=== PATIENT | male | born 1980 | race Caucasian/White ===

== ENCOUNTER 2017-07-22 20:22 | Emergency (ER) | payer OTHER ==
[2017-07-22 20:27] VITALS: TEMP 98.5
[2017-07-22] MEDS ORDERED: hydrALAZINE HCL 20 MG/ML 1 ML VIAL IVP STA (21:02)
[2017-07-22] MEDS ORDERED: ONDANSETRON 4 MG/2 ML VIAL IVP STA (21:07)
[2017-07-22] MEDS ORDERED: SODIUM CHLORIDE 0.9% 1,000 ML IV STA (21:07)
[2017-07-22] MEDS ORDERED: MORPHINE SULFATE 5 MG/ML SYRINGE IV STA (21:07)
[2017-07-22] MEDS: NITROGLYCERIN SL TABS 0.4 MG TAB SUBLINGUAL STA ×2 (21:17→21:25)
[2017-07-22] MEDS: HYDROmorphone 1 MG/ML 1 ML SYRINGE IVP STA ×2 (21:19→22:28)
[2017-07-22 21:23] LABS: Basophils % (A) 0 %; Eosinophils # (A) 0.1 k/uL (0-0.7); Eosinophils % (A) 1 %; HCT 41.5 % (39.0-53.0); HGB 14.2 gm/dL (13.0-17.5); Lymphocytes # (A) 1.1 k/uL (1.0-4.8); Lymphocytes % (A) 9 %; MCH 30.1 pg (25.0-35.0); MCHC 34.1 g/dL (31.0-37.0); MCV 88.1 fL (80.0-100.0); Mean Platelet Volume 8.3; Monocytes # (A) 0.8 k/uL (0-1.0); Monocytes % (A) 6 %; Neutrophils % (A) 83 %; Platelet Count 170 k/uL (150-450); RBC 4.71 m/uL (4.30-5.90); RDW 13.9 % (11.5-15.5); WBC 12.1 k/uL (3.8-10.6)
[2017-07-22 21:32] LABS: ALT 44 U/L (21-72); AST 22 U/L (17-59); Albumin 3.8 g/dL (3.5-5.0); Alkaline Phosphatase 67 U/L (38-126); Amylase <30 U/L (30-110); Anion Gap 9 mmol/L; Blood Urea Nitrogen 22 mg/dL (9-20); Calcium 9.2 mg/dL (8.4-10.2); Carbon Dioxide 26 mmol/L (22-30); Chloride 103 mmol/L (98-107); Glucose 134 mg/dL (74-99); Lipase 17 U/L (23-300); Magnesium 1.8 mg/dL (1.6-2.3); Sodium 138 mmol/L (137-145); Total Bilirubin 0.7 mg/dL (0.2-1.3); Total Protein 6.9 g/dL (6.3-8.2)
[2017-07-22] MEDS ORDERED: RX INFO: IV CONTRAST WAS GIVEN 1 EACH MISC MISCELLANE PRN (21:33)
--- NOTE | 2017-07-22 21:33 | ED ---
General Adult HPI - General Chief complaint: Chest Pain Stated complaint: chest pain Time Seen by Provider: 07/22/17 20:40 Source: patient, family, RN notes reviewed Mode of arrival: wheelchair Limitations: no limitations - History of Present Illness Initial comments: Chief complaint history of present illness a 36-year-old male here with his . The patient reports that approximately 1 PM yesterday he started having a burning chest pain. He gets worse when he sits up. Patient denies nausea vomiting or shortness of breath. Denies any change in color stool. Reports he felt chilled does not report having had a fever. Reports he had some muscle aches and pains - Related Data Home Medications Medication Instructions Recorded Confirmed No Known Home Medications [No 07/22/17 07/22/17 Known Home Medications] Allergies Allergy/AdvReac Type Severity Reaction Status Date / Time No Known Allergies Allergy Verified 07/22/17 20:26 Review of Systems ROS Statement: Those systems with pertinent positive or pertinent negative responses have been documented in the HPI. Review of systems. The patient denies any headache , his skin is flushed. Blood pressure significantly elevated at 200/140. Patient reports he thinks he may been told he had blood pressure past has never been treated for it. Patient reports that he was having a burning sensation whenever he would sit up to his retrosternal area. Patient denies pain radiating to the neck arm or back. Certain twists increases discomfort. No pain to deep palpation over his anterior chest wall. The patient denies any physical activity that may have injured his chest wall. Patient denies any neuro deficits. No nausea no vomiting. Has not been taking any antacids lately. All systems reviewed. Denies any chronic medical problems. Denies having had a history of hypertension. Surgeries ankle surgery and he was younger. Family history no cancers. Patient denies ALLERGIES. He does smoke strongly encouraged stop drinks alcohol socially. ROS Other: All systems not noted in ROS Statement are negative. Past Medical History Past Medical History: Hypertension History of Any Multi-Drug Resistant Organisms: None Reported Past Surgical History: Orthopedic Surgery Past Psychological History: No Psychological Hx Reported Smoking Status: Current every day smoker Past Alcohol Use History: None Reported Past Drug Use History: None Reported General Exam - General Exam Comments Initial Comments: General: The patient is awake and alert, complains of pain in the retrosternal area. Denies any nausea or vomiting. He states the pain worsens when he sits up immediately. Less so when he lays down. Eye: Pupils are equal, round and reactive to light, extra-ocular movements are intact ; there is normal conjunctiva bilaterally. No signs of icterus. Ears, nose, mouth and throat: There are moist mucous membranes and no oral lesions. Neck: The neck is supple, there is no tenderness, no carotid bruit. Cardiovascular: There is a regular rate and rhythm. No murmur, rub or gallop is appreciated. Respiratory: Lungs are clear to auscultation, respirations are non-labored, breath sounds are equal. No wheezes, stridor, rales, or rhonchi. Gastrointestinal: Soft, non-distended, non-tender abdomen without masses or organomegaly noted. There is no rebound or guarding present. No CVA tenderness. Bowel sounds are unremarkable. Back: There is no tenderness to palpation in the midline. There is no obvious deformity. No rashes noted. Musculoskeletal: Normal ROM, no tenderness, There is no pedal edema. There is no calf tenderness or swelling. Sensation intact. Pulses equal bilaterally 2+. Neurological: CN II-XII intact, There are no obvious motor or sensory deficits. Coordination appears grossly intact. Speech is normal. Skin: Skin is warm and dry and no rashes or lesions are noted. Psychiatric: Cooperative, appropriate mood & affect, normal judgment. Limitations: no limitations Course Vital Signs 07/22/17 07/22/17 07/22/17 20:24 21:20 21:24 Temperature 98.5 F Pulse Rate 108 H 100 105 H Respiratory 20 20 20 Rate Blood Pressure 231/122 190/126 186/89 O2 Sat by Pulse 98 96 98 Oximetry 07/22/17 07/22/17 07/22/17 21:29 21:56 22:06 Temperature Pulse Rate 108 H 96 95 Respiratory 20 16 20 Rate Blood Pressure 180/87 188/92 175/88 O2 Sat by Pulse 97 96 97 Oximetry 07/22/17 22:11 Temperature Pulse Rate 100 Respiratory 20 Rate Blood Pressure 177/90 O2 Sat by Pulse 97 Oximetry Medical Decision Making - Medical Decision Making Stat CT of the chest was done and reviewed with the radiologist in the department. His diagnosis is type A type S any aortic dissection down to both iliac vessels, non-flow limiting. Patient will be transferred to [facility]. Via the fastest transport available at this time either helicopter or ambulance. Spoke with at [facility], cardiothoracic surgeon on-call. He accepts the patient for transfer. The patient will be transferred via helicopter as that is the fastest modality at this time. The patient will be on as needed a labetalol drip. - Lab Data Result diagrams: 07/22/17 20:52 07/22/17 20:52 Lab Results 07/22/17 07/22/17 07/22/17 Range/Units 20:52 20:52 20:52 WBC 12.1 H (3.8-10.6) k/uL RBC 4.71 (4.30-5.90) m/uL Hgb 14.2 (13.0-17.5) gm/dL Hct 41.5 (39.0-53.0) % MCV 88.1 (80.0-100.0) fL MCH 30.1 (25.0-35.0) pg MCHC 34.1 (31.0-37.0) g/dL RDW 13.9 (11.5-15.5) % Plt Count 170 (150-450) k/uL Neutrophils % 83 % Lymphocytes % 9 % Monocytes % 6 % Eosinophils % 1 % Basophils % 0 % Neutrophils # 10.0 H (1.3-7.7) k/uL Lymphocytes # 1.1 (1.0-4.8) k/uL Monocytes # 0.8 (0-1.0) k/uL Eosinophils # 0.1 (0-0.7) k/uL Basophils # 0.0 (0-0.2) k/uL PT (9.0-12.0) sec INR (<1.2) APTT (22.0-30.0) sec D-Dimer (<0.60) mg/L FEU Sodium 138 (137-145) mmol/L Potassium 3.9 (3.5-5.1) mmol/L Chloride 103 (98-107) mmol/L Carbon Dioxide 26 (22-30) mmol/L Anion Gap 9 mmol/L BUN 22 H (9-20) mg/dL Creatinine 1.20 (0.66-1.25) mg/dL Est GFR (MDRD) Af Amer >60 (>60 ml/min/1.73 sqM) Est GFR (MDRD) Non-Af >60 (>60 ml/min/1.73 sqM) Glucose 134 H (74-99) mg/dL Calcium 9.2 (8.4-10.2) mg/dL Magnesium 1.8 (1.6-2.3) mg/dL Total Bilirubin 0.7 (0.2-1.3) mg/dL AST 22 (17-59) U/L ALT 44 (21-72) U/L Alkaline Phosphatase 67 (38-126) U/L Total Creatine Kinase 52 L (55-170) U/L CK-MB (CK-2) 0.7 (0.0-2.4) ng/mL CK-MB (CK-2) Rel Index 1.3 Troponin I <0.012 (0.000-0.034) ng/mL Total Protein 6.9 (6.3-8.2) g/dL Albumin 3.8 (3.5-5.0) g/dL Amylase <30 L (30-110) U/L Lipase 17 L (23-300) U/L Influenza Type A RNA (Not Detectd) Influenza Type B (PCR) (Not Detectd) 07/22/17 07/22/17 Range/Units 20:52 21:18 WBC (3.8-10.6) k/uL RBC (4.30-5.90) m/uL Hgb (13.0-17.5) gm/dL Hct (39.0-53.0) % MCV (80.0-100.0) fL MCH (25.0-35.0) pg MCHC (31.0-37.0) g/dL RDW (11.5-15.5) % Plt Count (150-450) k/uL Neutrophils % % Lymphocytes % % Monocytes % % Eosinophils % % Basophils % % Neutrophils # (1.3-7.7) k/uL Lymphocytes # (1.0-4.8) k/uL Monocytes # (0-1.0) k/uL Eosinophils # (0-0.7) k/uL Basophils # (0-0.2) k/uL PT 9.8 (9.0-12.0) sec INR 1.0 (<1.2) APTT 24.3 (22.0-30.0) sec D-Dimer 1.87 H (<0.60) mg/L FEU Sodium (137-145) mmol/L Potassium (3.5-5.1) mmol/L Chloride (98-107) mmol/L Carbon Dioxide (22-30) mmol/L Anion Gap mmol/L BUN (9-20) mg/dL Creatinine (0.66-1.25) mg/dL Est GFR (MDRD) Af Amer (>60 ml/min/1.73 sqM) Est GFR (MDRD) Non-Af (>60 ml/min/1.73 sqM) Glucose (74-99) mg/dL Calcium (8.4-10.2) mg/dL Magnesium (1.6-2.3) mg/dL Total Bilirubin (0.2-1.3) mg/dL AST (17-59) U/L ALT (21-72) U/L Alkaline Phosphatase (38-126) U/L Total Creatine Kinase (55-170) U/L CK-MB (CK-2) (0.0-2.4) ng/mL CK-MB (CK-2) Rel Index Troponin I (0.000-0.034) ng/mL Total Protein (6.3-8.2) g/dL Albumin (3.5-5.0) g/dL Amylase (30-110) U/L Lipase (23-300) U/L Influenza Type A RNA Not Detected (Not Detectd) Influenza Type B (PCR) Not Detected (Not Detectd) Disposition Clinical Impression: Acute thoracic aortic dissection Disposition: OTHER INSTITUTION NOT DEFINED Condition: Serious Referrals: None,Stated [Primary Care Provider] - 1-2 days - Out of Hospital Transfer - Req. Specs Out of Hospital Transfer - Requested Specifics: Other Emergency Center ( [facility], )
[2017-07-22 21:34] LABS: D-Dimer 1.87 mg/L FEU (<0.60); Partial Thromboplastin Time 24.3 sec (22.0-30.0); Prothrombin Time 9.8 sec (9.0-12.0)
[2017-07-22 21:43] LABS: Creatine Kinase 52 U/L (55-170)
[2017-07-22 21:46] LABS: Potassium 3.9 mmol/L (3.5-5.1)
[2017-07-22] MEDS: LABETALOL 5 MG/ML VIAL MDV IVP STA ×5 (21:50→22:33)
[2017-07-22 21:56] LABS: Creatine Kinase MB 0.7 ng/mL (0.0-2.4); Troponin I <0.012 ng/mL (0.000-0.034)
[2017-07-22] MEDS ORDERED: LABETALOL 100 MG in SODIUM CHLORIDE 0.9% 80 ML IV ONE ×2 (22:16→22:18)
--- NOTE | 2017-07-22 22:16 | CT ---
EXAMINATION TYPE: CT angio thoracic/abd aorta DATE OF EXAM: 07/22/2017 COMPARISON: NONE HISTORY: Severe chest pain when sitting up. CT DLP: 1573.40 mGycm. Automated Exposure Control for Dose Reduction was Utilized. CONTRAST: CT scan of the thorax, abdomen and pelvis is performed without and with IV Contrast, patient injected with 100 mL of Omnipaque 350. FINDINGS: The lungs are clear. There is no pneumothorax or pleural effusion. There is no pleural or pericardial effusion. The liver, gallbladder, spleen, pancreas, adrenal glands, and kidneys are unremarkable. There is no e vidence of a bowel obstruction. There is no free intraperitoneal air or free fluid. There is no mesen teric or retroperitoneal lymphadenopathy. The prostate and urinary bladder are unremarkable. There are no osteolytic or osteoblastic lesions. There is a type A dissection which begins at the aor tic valve plane and extends into both common iliac arteries. The dissection flap appears to be nonflo w limiting. There is adequate perfusion of the celiac, superior mesenteric, and renal arteries. There is normal three-vessel aortic arch anatomy. The origins of the celiac and superior mesenteric a rteries are widely patent. There is a single left and 2 right renal arteries. The inferior mesenteric artery is widely patent. No significant atherosclerotic disease is identified. IMPRESSION: Type A aortic dissection which extends from the level of the aortic valve and involves both the commo n iliac arteries. This is nonflow limiting. Findings were discussed at the work station with Dr. Lanier by Dr. Maria at 2200 on July 22, 2017 .
[2017-07-22] MEDS ORDERED: HYDROmorphone 1 MG/ML 1 ML SYRINGE IVP STA (22:26)
[2017-07-22 22:52] VITALS: BP 161/90; PULSE 94; RESP 20
== END 2017-07-22 23:24 | disposition other institution (70) ==
LOC: EC 20:22
DX: I71.01 Dissection of thoracic aorta (principal); R07.9 Chest pain, unspecified; F17.200 Nicotine dependence, unspecified, uncomplicated
CPT/HCPCS: 99285 ×2; 51702; 96365 ×2; 96375 ×4; 96376 ×2; 96361 ×3; 36415; 93005; 85379; 80053; 82150; 82550; 82553; 83690; 83735; 84484; 85025; 85610; 85730; 87502; 75635; 71275; J0360; Q9967; J2405; J1170

== ENCOUNTER 2019-05-09 14:10 | Emergency (ER) | payer OTHER ==
[2019-05-09] MEDS ORDERED: KETOROLAC 30 MG/ML 1 ML VIAL IVP STA (14:48)
[2019-05-09] MEDS ORDERED: SODIUM CHLORIDE 0.9% 1,000 ML IV STA (14:48)
--- NOTE | 2019-05-09 14:53 | ED ---
General Adult HPI - General Source: patient, RN notes reviewed Mode of arrival: ambulatory Limitations: no limitations <Quentin Be - Last Filed: 05/10/19 16:27> <Raiza Madera - Last Filed: 05/12/19 00:25> - General Chief complaint: Back Pain/Injury Stated complaint: R side pain Time Seen by Provider: 05/09/19 14:17 - History of Present Illness Initial comments: 38-year-old male with a past medical history of hypertension, aortic dissection with repair in 2016 presents to the emergency department for a chief complaint of right flank pain radiating to the right abdomen. This started approximately 2 hours prior to arrival when he was driving. States it is a burning sensation. Denies any difficulty urinating. Denies any fevers or chills. Denies any midline back pain. Denies ever having this sensation before. Denies any history of kidney stones.Patient has no other complaints at this time including shortness of breath, chest pain, nausea or vomiting, headache, or visual changes. (Quentin Be) - Related Data Home Medications Medication Instructions Recorded Confirmed Metoprolol Tartrate [Lopressor] 100 mg PO TID 05/09/19 05/09/19 Allergies Allergy/AdvReac Type Severity Reaction Status Date / Time No Known Allergies Allergy Verified 05/09/19 18:11 Review of Systems ROS Other: All systems not noted in ROS Statement are negative. <Quentin Be - Last Filed: 05/10/19 16:27> ROS Other: All systems not noted in ROS Statement are negative. <Raiza Madera - Last Filed: 05/12/19 00:25> ROS Statement: Those systems with pertinent positive or pertinent negative responses have been documented in the HPI. Past Medical History Past Medical History: Hypertension History of Any Multi-Drug Resistant Organisms: None Reported Past Surgical History: Orthopedic Surgery Additional Past Surgical History / Comment(s): aortic disection with repair Past Psychological History: No Psychological Hx Reported Smoking Status: Current every day smoker Past Alcohol Use History: Occasional Past Drug Use History: None Reported <Quentin Be - Last Filed: 05/10/19 16:27> General Exam Limitations: no limitations General appearance: alert, in no apparent distress Head exam: Present: atraumatic, normocephalic, normal inspection Eye exam: Present: normal appearance, PERRL, EOMI. Absent: scleral icterus, conjunctival injection, periorbital swelling ENT exam: Present: normal exam, mucous membranes moist Neck exam: Present: normal inspection, full ROM. Absent: tenderness, meningismus, lymphadenopathy Respiratory exam: Present: normal lung sounds bilaterally. Absent: respiratory distress, wheezes, rales, rhonchi, stridor Cardiovascular Exam: Present: regular rate, normal rhythm, normal heart sounds. Absent: systolic murmur, diastolic murmur, rubs, gallop, clicks GI/Abdominal exam: Present: soft, normal bowel sounds. Absent: distended, tenderness, guarding, rebound, rigid Back exam: Absent: CVA tenderness (R), CVA tenderness (L) Neurological exam: Present: alert Psychiatric exam: Present: normal affect, normal mood <Quentin Be - Last Filed: 05/10/19 16:27> Course <Quentin Be - Last Filed: 05/10/19 16:27> Vital Signs 05/09/19 05/09/19 05/09/19 14:11 15:29 17:36 Temperature 97.3 F L 98.2 F Pulse Rate 57 L 60 88 Respiratory 24 18 18 Rate Blood Pressure 174/92 176/99 158/96 O2 Sat by Pulse 100 95 100 Oximetry 05/09/19 05/09/19 05/09/19 18:11 18:59 19:24 Temperature 96.9 F L Pulse Rate 86 80 71 Respiratory 18 18 20 Rate Blood Pressure 174/110 176/110 166/108 O2 Sat by Pulse 99 98 97 Oximetry 05/09/19 19:27 Temperature Pulse Rate 79 Respiratory Rate Blood Pressure 177/120 O2 Sat by Pulse 97 Oximetry - Reevaluation(s) Reevaluation #1: 05/09/19 18:00 Awaiting callback from [facility] pending transfer (Quentin Be) Medical Decision Making - Lab Data Result diagrams: 05/09/19 14:47 05/09/19 14:47 <Quentin Be - Last Filed: 05/10/19 16:27> - Lab Data Result diagrams: 05/09/19 14:47 05/09/19 14:47 <Raiza Madera - Last Filed: 05/12/19 00:25> - Medical Decision Making 38-year-old male with a past medical history of hypertension, aortic dissection with ascending repair in 2017 presents for right flank pain radiating into the right abdomen. Started approximately 2 hours prior to arrival while he was driving. Exam is unremarkable. Abdomen is nontender. Initial presentation seemed clinically to be related to kidney stone. However CT without contrast was negative. Therefore CT aorta was ordered which showed a dissection of the ascending and descending aorta extending into the common iliac arteries. The extent of dissection is not significantly different than last exam. However there is an increased an aneurysm from 3.6 but centimeters to 4.3 cm of the ascending aorta. I discussed this case with the radiologist who states that the only change is the increase in the aneurysm. However given patient's right flank pain without a cause patient was given IV labetalol and will be transferred to [facility] where he had his surgery in [address] Mckay. Case disscused throughout with Dr Madera. Discussed this case with [facility] cardiovascular surgeon Dr Gamboa who recommends transfer to the air facility to the ER. I did speak with Dr. Syed who accepts this transfer from the ER. (Quentin Be) I was available for consultation in the emergency department. The history and physical exam were done by the midlevel provider. I was consulted for this patients care. I reviewed the case with the midlevel provider and based on their presentation of the patient, I agree with the assessment, medical decision making and plan of care as documented. Chart was dictated using [employer] dictation software. Attempts were made to correct any dictation errors however some typographical errors may persist. (Raiza Madera) - Lab Data Lab Results 05/09/19 05/09/19 05/09/19 Range/Units 14:47 14:47 14:47 WBC 6.2 (3.8-10.6) k/uL RBC 4.68 (4.30-5.90) m/uL Hgb 14.8 (13.0-17.5) gm/dL Hct 42.5 (39.0-53.0) % MCV 90.8 (80.0-100.0) fL MCH 31.6 (25.0-35.0) pg MCHC 34.8 (31.0-37.0) g/dL RDW 12.9 (11.5-15.5) % Plt Count 181 (150-450) k/uL Neutrophils % 76 % Lymphocytes % 15 % Monocytes % 6 % Eosinophils % 2 % Basophils % 0 % Neutrophils # 4.7 (1.3-7.7) k/uL Lymphocytes # 0.9 L (1.0-4.8) k/uL Monocytes # 0.3 (0-1.0) k/uL Eosinophils # 0.1 (0-0.7) k/uL Basophils # 0.0 (0-0.2) k/uL PT (9.0-12.0) sec INR (<1.2) APTT (22.0-30.0) sec Sodium 140 (137-145) mmol/L Potassium 4.6 (3.5-5.1) mmol/L Chloride 109 H (98-107) mmol/L Carbon Dioxide 19 L (22-30) mmol/L Anion Gap 12 mmol/L BUN 24 H (9-20) mg/dL Creatinine 1.02 (0.66-1.25) mg/dL Est GFR (CKD-EPI)AfAm >90 (>60 ml/min/1.73 sqM) Est GFR (CKD-EPI)NonAf >90 (>60 ml/min/1.73 sqM) Glucose 95 (74-99) mg/dL Calcium 9.5 (8.4-10.2) mg/dL Total Bilirubin 0.6 (0.2-1.3) mg/dL AST 37 (17-59) U/L ALT 37 (21-72) U/L Alkaline Phosphatase 72 (38-126) U/L Troponin I (0.000-0.034) ng/mL Total Protein 7.7 (6.3-8.2) g/dL Albumin 4.4 (3.5-5.0) g/dL Amylase 41 (30-110) U/L Lipase 29 (23-300) U/L Urine Color Yellow Urine Appearance Clear (Clear) Urine pH 8.0 (5.0-8.0) Ur Specific [place] 1.024 (1.001-1.035) Urine Protein Trace H (Negative) Urine Glucose (UA) Negative (Negative) Urine Ketones 1+ H (Negative) Urine Blood Negative (Negative) Urine Nitrite Negative (Negative) Urine Bilirubin Negative (Negative) Urine Urobilinogen <2.0 (<2.0) mg/dL Ur Leukocyte Esterase Trace H (Negative) Urine RBC <1 (0-5) /hpf Urine WBC 1 (0-5) /hpf Urine Bacteria Rare H (None) /hpf Urine Mucus Rare H (None) /hpf Chlamydia Source Chlamydia DNA (PCR) (Neg,Equiv) N. gonorrhoeae Source N.gonorrhoeae DNA Probe (Neg,Equiv) 05/09/19 05/09/19 05/09/19 Range/Units 14:47 14:47 14:47 WBC (3.8-10.6) k/uL RBC (4.30-5.90) m/uL Hgb (13.0-17.5) gm/dL Hct (39.0-53.0) % MCV (80.0-100.0) fL MCH (25.0-35.0) pg MCHC (31.0-37.0) g/dL RDW (11.5-15.5) % Plt Count (150-450) k/uL Neutrophils % % Lymphocytes % % Monocytes % % Eosinophils % % Basophils % % Neutrophils # (1.3-7.7) k/uL Lymphocytes # (1.0-4.8) k/uL Monocytes # (0-1.0) k/uL Eosinophils # (0-0.7) k/uL Basophils # (0-0.2) k/uL PT 10.1 (9.0-12.0) sec INR 0.9 (<1.2) APTT 23.8 (22.0-30.0) sec Sodium (137-145) mmol/L Potassium (3.5-5.1) mmol/L Chloride (98-107) mmol/L Carbon Dioxide (22-30) mmol/L Anion Gap mmol/L BUN (9-20) mg/dL Creatinine (0.66-1.25) mg/dL Est GFR (CKD-EPI)AfAm (>60 ml/min/1.73 sqM) Est GFR (CKD-EPI)NonAf (>60 ml/min/1.73 sqM) Glucose (74-99) mg/dL Calcium (8.4-10.2) mg/dL Total Bilirubin (0.2-1.3) mg/dL AST (17-59) U/L ALT (21-72) U/L Alkaline Phosphatase (38-126) U/L Troponin I <0.012 (0.000-0.034) ng/mL Total Protein (6.3-8.2) g/dL Albumin (3.5-5.0) g/dL Amylase (30-110) U/L Lipase (23-300) U/L Urine Color Urine Appearance (Clear) Urine pH (5.0-8.0) Ur Specific [place] (1.001-1.035) Urine Protein (Negative) Urine Glucose (UA) (Negative) Urine Ketones (Negative) Urine Blood (Negative) Urine Nitrite (Negative) Urine Bilirubin (Negative) Urine Urobilinogen (<2.0) mg/dL Ur Leukocyte Esterase (Negative) Urine RBC (0-5) /hpf Urine WBC (0-5) /hpf Urine Bacteria (None) /hpf Urine Mucus (None) /hpf Chlamydia Source Urine Chlamydia DNA (PCR) Negative (Neg,Equiv) N. gonorrhoeae Source Urine N.gonorrhoeae DNA Probe Negative (Neg,Equiv) Disposition Is patient prescribed a controlled substance at d/c from ED?: No Time of Disposition: 18:08 - Out of Hospital Transfer - Req. Specs Out of Hospital Transfer - Requested Specifics: Other Emergency Center ([facility]) <Quentin Be P - Last Filed: 05/10/19 16:27> <Raiza Madera A - Last Filed: 05/12/19 00:25> Clinical Impression: Aortic aneurysm Disposition: OTHER INSTITUTION NOT DEFINED Condition: Fair Referrals: None,Stated [Primary Care Provider] - 1-2 days
[2019-05-09 15:18] LABS: ALT 37 U/L (21-72); AST 37 U/L (17-59); African American GFR (CKD) >90 (>60 ml/min/1.73 sqM); Albumin 4.4 g/dL (3.5-5.0); Alkaline Phosphatase 72 U/L (38-126); Amylase 41 U/L (30-110); Anion Gap 12 mmol/L; Blood Urea Nitrogen 24 mg/dL (9-20); Calcium 9.5 mg/dL (8.4-10.2); Carbon Dioxide 19 mmol/L (22-30); Chloride 109 mmol/L (98-107); Glucose 95 mg/dL (74-99); Sodium 140 mmol/L (137-145); Total Bilirubin 0.6 mg/dL (0.2-1.3); Total Protein 7.7 g/dL (6.3-8.2)
[2019-05-09 15:27] LABS: Basophils % (A) 0 %; Eosinophils # (A) 0.1 k/uL (0-0.7); Eosinophils % (A) 2 %; HCT 42.5 % (39.0-53.0); HGB 14.8 gm/dL (13.0-17.5); Lymphocytes # (A) 0.9 k/uL (1.0-4.8); Lymphocytes % (A) 15 %; MCH 31.6 pg (25.0-35.0); MCHC 34.8 g/dL (31.0-37.0); MCV 90.8 fL (80.0-100.0); Mean Platelet Volume 7.3; Monocytes # (A) 0.3 k/uL (0-1.0); Monocytes % (A) 6 %; Neutrophils # (A) 4.7 k/uL (1.3-7.7); Neutrophils % (A) 76 %; Platelet Count 181 k/uL (150-450); RBC 4.68 m/uL (4.30-5.90); RDW 12.9 % (11.5-15.5); WBC 6.2 k/uL (3.8-10.6)
[2019-05-09 15:28] LABS: Appearance,Urine Clear (Clear); Bacteria,Urine Rare /hpf; Bilirubin,Urine Negative (Negative); Blood,Urine Negative (Negative); Color,Urine Yellow; Glucose,Urine (UA) Negative (Negative); Ketones,Urine 1+ (Negative); Leukocyte Esterase,Urine Trace (Negative); Mucus,Urine Rare /hpf; Nitrite,Urine Negative (Negative); Protein,Urine Trace (Negative); RBC,Urine <1 /hpf (0-5); Specific Gravity,Urine 1.024 (1.001-1.035); Urobilinogen,Urine <2.0 mg/dL (<2.0); WBC,Urine 1 /hpf (0-5)
[2019-05-09 15:29] LABS: Potassium 4.6 mmol/L (3.5-5.1)
--- NOTE | 2019-05-09 15:39 | CT ---
EXAMINATION TYPE: CT abdomen pelvis wo con DATE OF EXAM: 05/09/2019 HISTORY: RLQ/right flank pain CT DLP: 841.6 mGycm. Automated Exposure Control for Dose Reduction was Utilized. TECHNIQUE: CT scan of the abdomen and pelvis is performed without oral or IV contrast. COMPARISON: CTA chest July 22, 2017 FINDINGS: Within the limitations of a non-contrast study, th e following observations are made. LUNG BASES: No significant abnormality is appreciated. LIVER/GB: No significant abnormality is appreciated. PANCREAS: No significant abnormality is seen. SPLEEN: No significant abnormality is seen. ADRENALS: No significant abnormality is seen. KIDNEYS: No renal stones or hydronephrosis is seen bilaterally. BOWEL: Mild wall thickening involving the left and transverse colon. Diverticula involving left colon . No CT evidence for acute diverticulitis. No suspicious small and large bowel dilatation. Appendix u pper limits of normal in size from base of cecum without surrounding inflammatory change. GENITAL ORGANS: No gross abnormality seen. LYMPH NODES: No greater than 1cm abdominal or pelvic lymph nodes are appreciated. OSSEOUS STRUCTURES: Mild narrowing in both hip joints. Some spurring left sacroiliac joint. Asymmetri c left-sided narrowing and sclerosis. OTHER: Ectatic course to the aorta redemonstrated. IMPRESSION: No renal stones or hydronephrosis is seen bilaterally. No suspicious acute findings seen to account for patient's symptoms of right lower quadrant and flank pain.
[2019-05-09] MEDS: MORPHINE SULFATE 4 MG/ML SYRINGE IVP STA ×2 (15:53→19:22)
--- NOTE | 2019-05-09 17:14 | CT ---
EXAMINATION TYPE: CT angio thor/abd pel aorta DATE OF EXAM: 05/09/2019 COMPARISON: 07/22/2017 HISTORY: Right sided pain with history of dissection CT DLP: 1483.4 mGycm. Automated Exposure Control for Dose Reduction was Utilized. CONTRAST: CT scan of the thorax, abdomen and pelvis is performed with IV Contrast, patient injected with 100 mL of Isovue 370. FINDINGS: There are 3-D post processed images. Multiple axial sections were obtained from the thoracic inlet to the diaphragm without contrast. Mult iple axial sections were obtained from the thoracic inlet to the floor the pelvis with intravenous co ntrast. The lungs are clear of infiltrate. There is no evidence of a pulmonary mass. There is no pleural effu nickolas. Heart size is normal. There is no mediastinal adenopathy. There are no hilar masses. There is n o sign of pericardial effusion. Liver spleen stomach pancreas gallbladder appear normal. Bile ducts are not dilated. Both kidneys camden ear normal. There is no adrenal mass. There is no retroperitoneal adenopathy. There is no mesenteric edema. There is no sign of a bowel obstruction. Bladder distends smoothly. There is surgery at the ascending aorta with surgical clips. There is aneurysm of the aortic arch adiel t measures 4.3 cm. There is dissection of the thoracic and abdominal aorta. The dissection arises fro m the ascending aorta just distal to the surgical clips at the ascending aorta. The intimal flap is s een along the anterior wall of the descending thoracic aorta and entire abdominal aorta and extends i nto the common iliac arteries bilaterally. There is no evidence of hemodynamic stenosis. The contrast opacification on both sides of the intimal flap is fairly symmetric. There is arterial flow in the superior mesenteric artery and the celiac artery. There is arterial cruz w in both renal arteries. There is a duplex right renal artery. There is no sign of hemodynamic steno sis. There is bilateral arterial flow in the iliac and femoral arteries without evidence of hemodynamic st enosis. I see no bony destructive process. There is anterior wedging of T8 vertebra up to 25%. There is 15% w edging of T7 and T6. There is 25% wedging of T4. IMPRESSION: Dissection of the ascending and descending aorta extending into the common iliac arteries. The extent of dissection is not significantly different than last exam. There is 4.3 cm aneurysm of the ascendi ng aorta that is increased compared to old exam. On old exam aneurysm measures 3.6 cm. There are post surgical changes at the proximal ascending aorta. Aneurysm of the ascending aorta measures 4.2 cm on old exam and ascending aorta now measures 3.1 cm.
[2019-05-09 18:01] LABS: INR 0.9 (<1.2); Partial Thromboplastin Time 23.8 sec (22.0-30.0); Prothrombin Time 10.1 sec (9.0-12.0)
[2019-05-09] MEDS: LABETALOL 5 MG/ML VIAL MDV IVP STA ×2 (18:08→19:21)
[2019-05-09] MEDS ORDERED: HYDROmorphone 0.5 MG/0.5 ML SYRINGE IVP STA (18:17)
[2019-05-09 19:01] VITALS: TEMP 96.9
[2019-05-09 19:25] VITALS: RESP 20
[2019-05-09 19:29] VITALS: BP 177/120; PULSE 79
[2019-05-10 14:33] LABS: C. trachomatis,PCR Negative (Neg,Equiv); Chlamydia trachomatis Source Urine; N. gonorrhoeae,PCR Negative (Neg,Equiv); Neisseria Source Urine
== END 2019-05-09 19:32 | disposition other institution (70) ==
LOC: EC 14:10
DX: I71.2 Thoracic aortic aneurysm, without rupture (principal); I10 Essential (primary) hypertension; F17.200 Nicotine dependence, unspecified, uncomplicated; Z79.899 Other long term (current) drug therapy; Z86.79 Personal history of other diseases of the circulatory system; Z98.890 Other specified postprocedural states
CPT/HCPCS: 36415; 80053; 82150; 83690; 84484; 85025; 85610; 85730; 81001; 87491; 87591; 87086; 71275; 74176; 74174; 99285; 96374; 96375 ×3; 96361 ×3; J2270; J1885; J1170; Q9967

== ENCOUNTER 2019-06-22 12:58 | Observation (INO) | payer OTHER ==
[2019-06-22 13:15] LABS: Glucose,Whole Blood 113 mg/dL (75-99)
[2019-06-22] MEDS ORDERED: ASPIRIN 81 MG PO STA (13:23)
[2019-06-22] MEDS: MORPHINE SULFATE 4 MG/ML SYRINGE IV STA ×2 (13:30→14:14)
--- NOTE | 2019-06-22 13:31 | ED ---
General Adult HPI - General Chief complaint: Chest Pain Stated complaint: Chest pain Time Seen by Provider: 06/22/19 13:17 Source: patient, family, RN notes reviewed, old records reviewed (History reveals history of aortic dissection with repair.) Mode of arrival: wheelchair Limitations: no limitations - History of Present Illness Initial comments: Patient is a pleasant 38-year-old male presenting to the emergency Department with complaints of chest discomfort. Onset of symptoms was an hour or 2 ago. Discomfort is somewhat severe. Discomfort feels sharp without radiation. Discomfort is in the sternal region. No nausea or dyspnea. Patient does feel a little bit sweaty. No history of similar symptoms previously. - Related Data Home Medications Medication Instructions Recorded Confirmed Metoprolol Tartrate [Lopressor] 150 mg PO BID 05/09/19 06/22/19 Allergies Allergy/AdvReac Type Severity Reaction Status Date / Time No Known Allergies Allergy Verified 06/22/19 13:59 Review of Systems ROS Statement: Those systems with pertinent positive or pertinent negative responses have been documented in the HPI. ROS Other: All systems not noted in ROS Statement are negative. Constitutional: Denies: fever Eyes: Denies: eye pain ENT: Denies: ear pain Respiratory: Denies: cough, dyspnea Cardiovascular: Reports: as per HPI, chest pain Endocrine: Denies: fatigue Gastrointestinal: Denies: abdominal pain Genitourinary: Denies: dysuria Musculoskeletal: Denies: back pain Skin: Denies: rash Neurological: Denies: weakness Past Medical History Past Medical History: Hypertension History of Any Multi-Drug Resistant Organisms: None Reported Past Surgical History: Orthopedic Surgery Additional Past Surgical History / Comment(s): aortic disection with repair Past Psychological History: No Psychological Hx Reported Smoking Status: Current every day smoker Past Alcohol Use History: Occasional Past Drug Use History: None Reported General Exam Limitations: no limitations General appearance: alert, in distress (Patient does appear uncomfortable) Head exam: Present: normocephalic Eye exam: Present: normal appearance Neck exam: Present: normal inspection Respiratory exam: Present: normal lung sounds bilaterally. Absent: chest wall tenderness Cardiovascular Exam: Present: regular rate, normal rhythm Expanded Peripheral pulses: 2+: Radial (R), Radial (L), Posterior Tibialis (R), Posterior Tibialis (L), Dorsalis Pedis (R), Dorsalis Pedis (L) GI/Abdominal exam: Present: soft. Absent: distended, tenderness Extremities exam: Present: normal inspection Neurological exam: Present: alert. Absent: motor sensory deficit Psychiatric exam: Present: normal affect, normal mood Skin exam: Present: normal color Course Vital Signs 06/22/19 06/22/19 06/22/19 13:01 13:37 14:18 Temperature 97.5 F L Pulse Rate 81 73 72 Respiratory 18 18 18 Rate Blood Pressure 85/53 88/60 108/68 O2 Sat by Pulse 99 96 98 Oximetry - Reevaluation(s) Reevaluation #1: 06/22/19 13:39 CT notified of need for stat computed tomography scan as well as stat reading. EKG Findings - EKG Comments: EKG Findings:: Normal sinus rhythm at 78. CO 174. QRS 88. QT 412. QTC 469. Normal axis. Normal QRS. Inferior and lateral T wave inversion. Nonspecific ST-T. Previous EKG reviewed with somewhat similar findings. EKG was also reviewed with Dr. Pitt. Medical Decision Making - Medical Decision Making Patient reevaluated and feels much more comfortable resting in bed. Patient and family updated on results and plan. [facility] was paged for h ospital call. - Lab Data Result diagrams: 06/22/19 13:17 06/22/19 13:17 Lab Results 06/22/19 06/22/19 06/22/19 Range/Units 13:12 13:17 13:17 WBC 9.5 (3.8-10.6) k/uL RBC 5.55 (4.30-5.90) m/uL Hgb 17.1 (13.0-17.5) gm/dL Hct 50.4 (39.0-53.0) % MCV 90.9 (80.0-100.0) fL MCH 30.9 (25.0-35.0) pg MCHC 34.0 (31.0-37.0) g/dL RDW 12.5 (11.5-15.5) % Plt Count 110 L (150-450) k/uL Neutrophils % 81 % Lymphocytes % 10 % Monocytes % 5 % Eosinophils % 1 % Basophils % 1 % Neutrophils # 7.7 (1.3-7.7) k/uL Lymphocytes # 1.0 (1.0-4.8) k/uL Monocytes # 0.5 (0-1.0) k/uL Eosinophils # 0.1 (0-0.7) k/uL Basophils # 0.1 (0-0.2) k/uL PT (9.0-12.0) sec INR (<1.2) APTT (22.0-30.0) sec Sodium 140 (137-145) mmol/L Potassium 4.6 (3.5-5.1) mmol/L Chloride 107 (98-107) mmol/L Carbon Dioxide 23 (22-30) mmol/L Anion Gap 10 mmol/L BUN 26 H (9-20) mg/dL Creatinine 1.60 H (0.66-1.25) mg/dL Est GFR (CKD-EPI)AfAm 62 (>60 ml/min/1.73 sqM) Est GFR (CKD-EPI)NonAf 54 (>60 ml/min/1.73 sqM) Glucose 129 H (74-99) mg/dL POC Glucose (mg/dL) 113 H (75-99) mg/dL POC Glu Cover Seamer ID Kaylene Awad Calcium 9.6 (8.4-10.2) mg/dL Magnesium 1.6 (1.6-2.3) mg/dL Total Bilirubin 0.7 (0.2-1.3) mg/dL AST 36 (17-59) U/L ALT 45 (21-72) U/L Alkaline Phosphatase 80 (38-126) U/L Troponin I (0.000-0.034) ng/mL Total Protein 7.5 (6.3-8.2) g/dL Albumin 4.2 (3.5-5.0) g/dL Amylase 37 (30-110) U/L Lipase 25 (23-300) U/L 06/22/19 06/22/19 Range/Units 13:17 13:17 WBC (3.8-10.6) k/uL RBC (4.30-5.90) m/uL Hgb (13.0-17.5) gm/dL Hct (39.0-53.0) % MCV (80.0-100.0) fL MCH (25.0-35.0) pg MCHC (31.0-37.0) g/dL RDW (11.5-15.5) % Plt Count (150-450) k/uL Neutrophils % % Lymphocytes % % Monocytes % % Eosinophils % % Basophils % % Neutrophils # (1.3-7.7) k/uL Lymphocytes # (1.0-4.8) k/uL Monocytes # (0-1.0) k/uL Eosinophils # (0-0.7) k/uL Basophils # (0-0.2) k/uL PT 10.5 (9.0-12.0) sec INR 1.0 (<1.2) APTT 21.3 L (22.0-30.0) sec Sodium (137-145) mmol/L Potassium (3.5-5.1) mmol/L Chloride (98-107) mmol/L Carbon Dioxide (22-30) mmol/L Anion Gap mmol/L BUN (9-20) mg/dL Creatinine (0.66-1.25) mg/dL Est GFR (CKD-EPI)AfAm (>60 ml/min/1.73 sqM) Est GFR (CKD-EPI)NonAf (>60 ml/min/1.73 sqM) Glucose (74-99) mg/dL POC Glucose (mg/dL) (75-99) mg/dL POC Glu Cover Seamer ID Calcium (8.4-10.2) mg/dL Magnesium (1.6-2.3) mg/dL Total Bilirubin (0.2-1.3) mg/dL AST (17-59) U/L ALT (21-72) U/L Alkaline Phosphatase (38-126) U/L Troponin I 0.014 (0.000-0.034) ng/mL Total Protein (6.3-8.2) g/dL Albumin (3.5-5.0) g/dL Amylase (30-110) U/L Lipase (23-300) U/L - Radiology Data Radiology results: report reviewed (Computed tomography scan of the thoracic and abdominal aorta shows similar findings as Previous CT with chronic dissection status post repair) Disposition Clinical Impression: Chest pain Disposition: ADMITTED IP TO THIS HOSP Is patient prescribed a controlled substance at d/c from ED?: No Referrals: Yannick Coley MD [Primary Care Provider] - 1-2 days Decision Time: 14:44
[2019-06-22] MEDS ORDERED: ONDANSETRON 4 MG/2 ML VIAL IVP STA (13:36)
[2019-06-22 13:46] LABS: Basophils # (A) 0.1 k/uL (0-0.2); Basophils % (A) 1 %; Eosinophils # (A) 0.1 k/uL (0-0.7); Eosinophils % (A) 1 %; HCT 50.4 % (39.0-53.0); HGB 17.1 gm/dL (13.0-17.5); Lymphocytes % (A) 10 %; MCH 30.9 pg (25.0-35.0); MCV 90.9 fL (80.0-100.0); Mean Platelet Volume 8.1; Monocytes # (A) 0.5 k/uL (0-1.0); Monocytes % (A) 5 %; Neutrophils # (A) 7.7 k/uL (1.3-7.7); Neutrophils % (A) 81 %; Platelet Count 110 k/uL (150-450); RBC 5.55 m/uL (4.30-5.90); RDW 12.5 % (11.5-15.5); WBC 9.5 k/uL (3.8-10.6)
[2019-06-22 13:51] LABS: Albumin 4.2 g/dL (3.5-5.0); Calcium 9.6 mg/dL (8.4-10.2); Magnesium 1.6 mg/dL (1.6-2.3); Potassium 4.6 mmol/L (3.5-5.1); Total Bilirubin 0.7 mg/dL (0.2-1.3); Total Protein 7.5 g/dL (6.3-8.2)
[2019-06-22 13:54] LABS: Prothrombin Time 10.5 sec (9.0-12.0)
[2019-06-22] MEDS ORDERED: SODIUM CHLORIDE 0.9% 500 ML 500 ML IV STA ×2 (13:59→14:10)
[2019-06-22 14:09] LABS: Partial Thromboplastin Time 21.3 sec (22.0-30.0)
--- NOTE | 2019-06-22 14:24 | CT ---
EXAMINATION TYPE: CT angio thor/abd pel aorta DATE OF EXAM: 06/22/2019 COMPARISON: CTA 05/09/2019 HISTORY: Severe chest pain, hypotension CT DLP: 3084.3 mGycm. Automated Exposure Control for Dose Reduction was Utilized. CONTRAST: CT scan of the thorax, abdomen and pelvis is performed without and with IV Contrast, patient injected with 100 mL of Isovue 370. FINDINGS: Vasculature: No intramural hematoma. Surgical stent redemonstrated of the descending thoracic aorta. Stable aneurysmal dilatation of the aortic arch measuring 4.3 cm. Dissection flap redemonstrated invo lving the ascending and descending thoracic aorta caudally extending through the abdominal aorta into the common iliac arteries. There is contrast opacification on both sides of the dissection flap whic h is symmetric in attenuation. The dissection flap does not involve the aortic arch vessels nor abdom inal branch vessels. The abdominal aortic branches, including celiac trunk, superior, and inferior me senteric arteries as well as renal arteries (single on the left and 2 on the right) are opacified equ ally. THORAX: No airspace consolidation. No pleural effusion or pneumothorax. No cardiomegaly. No pericardi al effusion. There are no greater than 1 cm hilar or mediastinal lymph nodes. ABDOMEN: Focal hepatic fatty infiltration adjacent to the falciform ligament. The spleen, pancreas, a nd adrenal glands are within normal limits. No calcified gallstones. Symmetric renal enhancement with out hydronephrosis. No dilated bowel, free air, or free fluid. No mesenteric inflammatory changes. No mesenteric adenopathy. Osseous structures: Unchanged T4, T6, T7, and T8 compression deformities. IMPRESSION: The exam is stable from CTA chest, abdomen, and pelvis performed in April 2019. These findings incl ude ascending aortic stent with an ascending through descending thoracic and abdominal aorta dissecti on flap. Aneurysm dilatation of the aortic arch is stable measuring 4.3 cm
[2019-06-22] MEDS ORDERED: NITROGLYCERIN SL TABS 0.4 MG TAB SUBLINGUAL PRN (14:44)
[2019-06-22] MEDS ORDERED: SODIUM CHLORIDE 0.9% 1,000 ML IV ONE (15:32)
--- NOTE | 2019-06-22 15:35 | P.HPIM ---
History of Present Illness H&P Date: 06/22/19 Chief Complaint: chest pain The patient is a 38-year-old male with a past medical history of aortic dissection status post repair at [facility], smoker of half a pack per day who presents to the ER via private vehicle with his with chief complaint of chest pain. Apparently the patient was feeling fine this morning, and then later this afternoon began having substernal chest pain described as burning with radiation to his back. the patient reports associated diaphoresis and nausea with some shortness of breath. The reports patient may have taken extra dose of his metoprolol by accident due to him having two blue pills. The patient denied any palpitations, denies slurred speech, denied focal weakness. Patient reports that his discomfort is now down from 8 to a 4 after being given morphine On arrival to the ER the patient is noted to be hypotensive BP 85/53 he was given a liter bolus and immediately sent for thoracic aortic CT which revealed no changes with his ascending aortic stent with an ascending and descending aortic and abdominal aortic dissection flap. Admission labs WBC 9.5 hemoglobin 17.1, platelets 110. Serum sodium 140 serum potassium 4.6 creatinine 1.6 and BUN 26. Troponin was 0.014 and EKG showed sinus mechanism with inferior and lateral T-wave inversions nonspecific ST changes largely similar to his previous EKG Review of Systems Pertinent positives per HPI all other review of systems otherwise negative Past Medical History Past Medical History: Hypertension History of Any Multi-Drug Resistant Organisms: None Reported Past Surgical History: Orthopedic Surgery Additional Past Surgical History / Comment(s): aortic disection with repair Past Psychological History: No Psychological Hx Reported Smoking Status: Current every day smoker Past Alcohol Use History: Occasional Past Drug Use History: None Reported Medications and Allergies Home Medications Medication Instructions Recorded Confirmed Type Metoprolol Tartrate [Lopressor] 150 mg PO BID 05/09/19 06/22/19 History Allergies Allergy/AdvReac Type Severity Reaction Status Date / Time No Known Allergies Allergy Verified 06/22/19 13:59 Physical Exam Vitals: Vital Signs Temp Pulse Resp BP Pulse Ox 06/22/19 14:18 72 18 108/68 98 06/22/19 13:37 73 18 88/60 96 06/22/19 13:01 97.5 F L 81 18 85/53 99 Intake and Output 06/22/19 06/22/19 06/22/19 06:59 14:59 22:59 Other: Weight 88.451 kg Constitutional: No acute distress, conversant, pleasant Eyes: Anicteric sclerae, moist conjunctiva, no lid-lag, PERRLA ENMT: NC/AT,Oropharynx clear, no erythema, exudates Neck:Supple, FROM, no masses, or JVD, No carotid bruits; No thyromegaly Lungs: Clear to auscultation, Clear to percussion, Normal respiratory effort, no accessory muscle use Cardiovascular: Heart regular in rate and rhythm, No murmurs, gallops, or rubs no peripheral edema Abdominal: Soft Nontender, nom distended, no guarding, no rebound or rigidity, Normoactive bowel sounds No hepatomegaly, No splenomegaly, No palpable mass No abdominal wall hernia noted Skin: Normal temperature, tone, texture, turgor, No induration No subcutaneous nodules, No rash, lesions, No ulcers Extremities:No digital cyanosis No clubbing, Pedal pulses intact and symmetrical Radial pulses intact and symmetrical Normal gait and station, No calf tenderness Psychiatric: Alert and oriented to person, place and time, Appropriate affect Intact judgement Neuro: Muscles Strength 5/5 in all 4 extremities, Sensation to light touch grossly present throughout, Cranial nerves II-XII grossly intact. No focal sen jose deficits Results CBC & Chem 7: 06/22/19 13:17 06/22/19 13:17 Labs: Abnormal Lab Results - Last 24 Hours (Table) 06/22/19 06/22/19 06/22/19 Range/Units 13:12 13:17 13:17 Plt Count 110 L (150-450) k/uL APTT (22.0-30.0) sec BUN 26 H (9-20) mg/dL Creatinine 1.60 H (0.66-1.25) mg/dL Glucose 129 H (74-99) mg/dL POC Glucose (mg/dL) 113 H (75-99) mg/dL 06/22/19 Range/Units 13:17 Plt Count (150-450) k/uL APTT 21.3 L (22.0-30.0) sec BUN (9-20) mg/dL Creatinine (0.66-1.25) mg/dL Glucose (74-99) mg/dL POC Glucose (mg/dL) (75-99) mg/dL Assessment and Plan Assessment: Atypical chest pain Hypotension Acute kidney injury History of aortic dissection status post repair Essential hypertension Smoking smoking Plan: The patient is placed in observation status anticipate a less than 2 midnight stay after presenting with atypical chest pain as a patient with previous aortic dissection who is status post repair workup with a thoracic aortic aneurysm was negative for any acute changes. EKG was sinus mechanism with some nonspecific ST-T wave changes and some inferior lateral T-wave inversion troponin was 0.014. Certainly possible of the patient's discomfort may have been precipitated by hypotension as a patient mistakenly took an extra doses of his metoprolol. The patient will be given another bolus and continued on fluids as a patient does have acute kidney injury that might be cardiorenal. Cardiology is been consulted, will order a 2-D echocardiogram and follow any further recommendations. Patient is advised to quit smoking we'll continue to follow his clinical course. CODE STATUS: Full code Anticipated discharge: 1-[address]: Home Medical decision maker" Prophylaxis: SCDs
[2019-06-22] MEDS: MORPHINE SULFATE 4 MG/ML SYRINGE IV PRN ×2 (15:54→20:35)
[2019-06-22] MEDS: SODIUM CHLORIDE 0.9% 1,000 ML IV SCH (17:00)
[2019-06-22] MEDS: NITROGLYCERIN OINT 1 INCH/GM PACKET TOPICAL SCH (18:19)
[2019-06-23] MEDS: MORPHINE SULFATE 4 MG/ML SYRINGE IV PRN ×2 (01:21→05:53)
[2019-06-23] MEDS: NITROGLYCERIN OINT 1 INCH/GM PACKET TOPICAL SCH ×2 (02:20→06:02)
[2019-06-23] MEDS: SODIUM CHLORIDE 0.9% 1,000 ML IV SCH (03:13)
[2019-06-23 03:50] LABS: Cholesterol 184 mg/dL (<200); HDL Cholesterol 36 mg/dL (40-60); LDL Cholesterol,Calculated 82 mg/dL (0-99); Triglycerides 332 mg/dL (<150)
[2019-06-23 04:27] VITALS: TEMP 98.1
[2019-06-23 05:00] VITALS: RESP 18
[2019-06-23 07:33] VITALS: BP 149/88; PULSE 60
[2019-06-23] MEDS ORDERED: ASPIRIN 325 MG TAB PO SCH (09:00)
[2019-06-23] MEDS ORDERED: METOPROLOL TARTRATE 50 MG TAB PO SCH (09:00)
[2019-06-23] MEDS ORDERED: ASPIRIN 81 MG PO SCH (09:00)
--- NOTE | 2019-06-23 11:43 | CONS ---
CONSULTATION Mr. Perez is a 38-year-old male with history of type A aortic dissection status post repair at [facility] in 2017, history of hypertension who presented with chest pain and dizziness. Apparently, there is a possibility that he took an extra dose of his beta serena yesterday. Came into the emergency room and was complaining of discomfort at the chest and some dizziness. He is feeling well at this time. The patient is usually active physically, has no exertional chest pain or exertional dyspnea. He denies any dizziness or palpitations. He denies any PND, orthopnea. He did not have any full syncopal episode. In the emergency room, he was hypotensive, with a blood pressure of 85/53. He had a repeat CT scan of the chest that revealed no evidence of changes with a known ascending aortic repair. He had an abdominal aortic dissection flap noted. The patient, according to him, has no prior history of obstructive coronary disease and he cannot recall having any recent cardiac workup. He denies any PND, orthopnea, or peripheral edema. No dizziness, palpitations, or syncope. He had the abnormal renal function on presentation which are new for him compared with the prior testing. It is unclear if he has a prior history of chronic kidney disease. The patient is not sure. He is not sure about his medications at home, but it appears that he takes lisinopril 20 mg twice a day, metoprolol tartrate 200 mg 3 times a day. There is a documented Trandate 4 times a day, but I will be surprised that he is taking 2 beta blockers. REVIEW OF SYSTEMS: Respiratory system: He has no history of documented asthma, emphysema or bronchitis. GI system: No recent GI bleed. No peptic ulcer disease. system: No dysuria or hematuria. Nervous system: No history of stroke or seizure. PHYSICAL EXAMINATION: He is a 38-year-old male, alert, oriented, in no apparent distress. Blood pressure 134/80 with a heart rate in the 60s. HEAD: Normocephalic. Eyes: Sclerae anicteric. NECK: No jugular venous distention with transmitted murmur bilaterally. LUNGS: Clear to auscultation. HEART: Regular rate and rhythm S1, S2. No S3 with systolic ejection murmur, 2/6 radiating to the neck. No diastolic murmur. No rub. ABDOMEN: Soft, nontender. Positive bowel sounds. No organomegaly. EXTREMITIES: No edema. Intact distal pulses. LAB DATA: EKG revealed a sinus mechanism, rate of 78 with T-wave inversion in the inferior and lateral leads as well as 1 in AVL with some mild ST elevation in lead V1 and V2 somewhat similar to what he had before, slightly more pronounced. Thoracic aortic CT was consistent with the prior repair of the aortic dissection with a flap noted in the abdomen. The aneurysm dilatation of the aortic arch was measuring at 4.3 cm. Lab data revealed BUN and creatinine 26 and 1.6, troponin 0.014, less than 0.012 and less than 0.012. Cholesterol 184, LDL of 82, hemoglobin of 17.1. IMPRESSION: 1. Episode of hypotension and dizziness could be related to the taking extra antihypertensive regimen. 2. Symptoms of chest discomfort of unclear etiology. Patient has an abnormal EKG, slightly more prominent, could be related to the hypertensive heart disease. He cannot recall having any evaluation of his coronary artery disease, although he is somewhat vague about his history. 3. Hypertension. 4. History of aortic dissection status post repair. 5. History of chronic tobacco use. 6. Renal function abnormality that appears to be new. RECOMMENDATIONS: I will re-initiate treatment with the beta serena. I will hold the FLY inhibitor at this time. I will obtain echocardiogram with Doppler. If there is no evidence of segmental wall motion abnormality, the patient may benefit from a stress test that can be done as an outpatient. Thank you for this consult. We will follow with you. SHAWNA / GERALDON: [id number] /
--- NOTE | 2019-06-23 14:49 | P.DS ---
Providers Date of admission: 06/22/19 14:44 Expected date of discharge: 06/23/19 Attending physician: Claudio Narvaez MD Consults: 06/22/19 14:44 Consult Physician Urgent Consulting Provider: Mar Pitt Consult Reason/Comments: cp Do you want consulting provider notified?: Yes Primary care physician: Yannick Coley MD Hospital Course: Discharge diagnosis Chest pain Hypotension History of aortic dissection status post repair Chronic tobacco use Hospital course The patient is a 38-year-old male with a past with a history of aortic dissection type A status post repair as placed in observation for chest pain. Workup here included a thoracic CT There is no evidence of change with a known ascending aortic repair with noted abdominal aortic dissection flap. The patient was presented with low blood pressure and was noted to be hypotensive 85/53 and was given a total of 3 L of normal saline boluses and continued on IV fluids. The patient's FLY inhibitor was held but he was continued on his beta serena therapy, 2-D echocardiogram was ordered, EKG showed sinus mechanism with a rate of 78 with T wave inversion in the inferior and lateral leads and some mi ld ST elevation in leads V1 and 2 which were similar to previous but slightly more pronounced, troponins were 0.014 , less than 0.012 less than 0.012. LDL was within acceptable range at 82. 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, he was told to continue taking his beta serena therapy and return precautions were provided.this discharge process took approximately 30 minutes Focused exam CV: Regular rate and rhythm, 2/6 systolic ejection murmur radiating to neck Plan - Discharge Summary Discharge Rx Participant: No New Discharge Prescriptions: Continue Metoprolol Tartrate [Lopressor] 200 mg PO TID Labetalol [Trandate] 300 mg PO QID Lisinopril [Zestril] 20 mg PO BID Discharge Medication List Metoprolol Tartrate [Lopressor] 200 mg PO TID 05/09/19 [History] Labetalol [Trandate] 300 mg PO QID 06/22/19 [History] Lisinopril [Zestril] 20 mg PO BID 06/22/19 [History] Follow up Appointment(s)/Referral(s): Yannick Coley MD [Primary Care Provider] - 1-2 days Patient Instructions/Handouts: Chest Pain (DC)
== END 2019-06-23 10:05 | disposition home or self-care (01) ==
LOC: EC 12:58 → 1SOBS 14:44
PROVIDERS: ADMIT Family Medicine; ATTEND Family Medicine
DX: R07.89 Other chest pain (principal); I95.9 Hypotension, unspecified; R61 Generalized hyperhidrosis; R06.02 Shortness of breath; N17.9 Acute kidney failure, unspecified; I10 Essential (primary) hypertension; R94.31 Abnormal electrocardiogram [ECG] [EKG]; I71.2 Thoracic aortic aneurysm, without rupture; F17.210 Nicotine dependence, cigarettes, uncomplicated; Z98.890 Other specified postprocedural states; Z79.899 Other long term (current) drug therapy; Z98.62 Peripheral vascular angioplasty status
CPT/HCPCS: 93005 ×2; 96361 ×3; 96376 ×3; 96374; 96375; 99285; 36415; 80061; 80053; 82150; 83690; 83735; 84484 ×2; 85025; 85610; 85730; 71275; 74174; G0378 ×2; J2270 ×2; J2405; Q9967

== ENCOUNTER 2019-08-19 21:20 | Emergency (ER) | payer OTHER ==
[2019-08-19] MEDS ORDERED: DIPH,PERTUS(ACELL)TETVAC-LF 0.5 ML VIAL IM ONE (21:40)
[2019-08-19] MEDS ORDERED: ceFAZolin 1,000 MG VIAL (IM USE) IM STA (21:40)
--- NOTE | 2019-08-19 21:54 | XR ---
EXAMINATION TYPE: XR finger LT DATE OF EXAM: 08/19/2019 COMPARISON: NONE HISTORY: Pain TECHNIQUE: 3 views FINDINGS: I see no fracture nor dislocation. Joint spaces are normal. There is no evidence of a radio paque foreign body. There is soft tissue laceration deformity at the end of the thumb. IMPRESSION: No fracture seen.
[2019-08-19] MEDS ORDERED: HYDROcodone/APAP 10-325MG 1 EACH TAB PO ONE (22:00)
[2019-08-19] MEDS ORDERED: LIDOCAINE 1% INJ 10MG/ML (20 ML MDV) SQ ONE (22:01)
[2019-08-19] MEDS ORDERED: GELATIN SPONGE,ABSORB (SMALL) 1 EACH SPONGE TOPICAL STA (22:01)
[2019-08-19 22:48] VITALS: BP 166/96; PULSE 118; RESP 18; TEMP 98.8
[2019-08-19] MEDS ORDERED: LABETALOL 100 MG TAB PO ONE (23:15)
--- NOTE | 2019-08-19 23:43 | ED ---
Wound/Laceration HPI - General Chief Complaint: Wound/Laceration Stated Complaint: LT thumb laceration Time Seen by Provider: 08/19/19 21:37 Source: patient Mode of arrival: ambulatory Limitations: no limitations - History of Present Illness Initial Comments: 38-year-old male presenting today for chief complaint of left thumb laceration. Patient states just prior to arrival using a cutting saw when he cut his tip of his left thumb. Patient states he does not see bone exposure. He states he is able to range the thumb. Patient denies any numbness tingling loss of sensation. Patient leaves is a chunk of the tip of his thumb. Patient denies any other areas of injuries. States he is unsure of his tetanus up-to-date E denies any other complaints upon arrival patient appears well besides acute distress denies a chest pain she was brought back pain is noted to have elevation of blood pressure but states he missed his nightly dose of medication s. - Related Data Home Medications Medication Instructions Recorded Confirmed Metoprolol Tartrate [Lopressor] 200 mg PO TID 05/09/19 06/22/19 Labetalol [Trandate] 300 mg PO QID 06/22/19 06/22/19 Lisinopril [Zestril] 20 mg PO BID 06/22/19 06/22/19 Previous Rx's Medication Instructions Recorded Cephalexin [Keflex] 500 mg PO Q6HR 7 Days #28 cap 08/19/19 Allergies Allergy/AdvReac Type Severity Reaction Status Date / Time No Known Allergies Allergy Verified 08/19/19 21:32 Review of Systems ROS Statement: Those systems with pertinent positive or pertinent negative responses have been documented in the HPI. ROS Other: All systems not noted in ROS Statement are negative. Past Medical History Past Medical History: Hypertension, Skin Disorder Additional Past Medical History / Comment(s): psoriasis History of Any Multi-Drug Resistant Organisms: None Reported Past Surgical History: Orthopedic Surgery Additional Past Surgical History / Comment(s): aortic dissection with repair, Right ankle surgery Past Anesthesia/Blood Transfusion Reactions: No Reported Reaction Past Psychological History: No Psychological Hx Reported Smoking Status: Current some day smoker Past Alcohol Use History: Occasional Past Drug Use History: None Reported - Past Family History Mother Family Medical History: CVA/TIA Father Additional Family Medical History / Comment(s): ETOH Pancreatitis General Exam - General Exam Comments Initial Comments: General: The patient is awake and alert, in no distress, and does not appear acutely ill. Eye: +3 mm pupils are equal, round and reactive to light, extra-ocular movements are intact. No nystagmus. There is normal conjunctiva bilaterally. No signs of icterus. Ears, nose, mouth and throat: There are moist mucous membranes and no oral lesions. . Cardiovascular: There is a regular rate and rhythm. No murmur, rub or gallop is appreciated. Respiratory: Lungs are clear to auscultation, respirations are non-labored, breath sounds are equal. No wheezes, stridor, rales, or rhonchi. Musculoskeletal: Normal ROM MCP, DIP and PIP joints of the hands b/l as well as IP joint of the left thumb. Strength 5/5. Sensation intact. Radial pulses equal bilaterally 2+. 1.5cmxx cm avulsion of skin of the tip of the left thumb, minor involvment of distal nail plate. No linear no irregular deeper lacerations Neurological: A&O x 3. CN II-XII intact grossly, There are no obvious motor or sensory deficits. Coordination appears grossly intact. Speech is normal. Skin: Skin is warm and dry and no rashes or lesions are noted. Psychiatric: Cooperative, appropriate mood & affect, normal judgment. Limitations: no limitations Course Vital Signs 08/19/19 08/19/19 21:30 22:45 Temperature 98.1 F 98.8 F Pulse Rate 128 H 118 H Respiratory 22 18 Rate Blood Pressure 140/95 166/96 O2 Sat by Pulse 99 96 Oximetry Medical Decision Making - Medical Decision Making 38-year-old male presenting today for chief complaint of left thumb injury. Skin avulsion evident on examination no exposure of bone or underlying structure . Patient is neurovascularly intact and there is no evidence of obvious tendon injury. X-ray reveals no bone involvement or fracture. It shows avulsion deformity. Patient had been given IM antibiotics, update tetanus. At this time there is no skin edges that can be approximated via sutures. I applied Gelfoam for bleeding control after extensively cleansing the area. Patient had a sterile bandage applied and I discussed the importance of primary care follow-up and adherence antibiotic regimen. Return permission we discussed case is discussed with her provider Dr. Sood and patient was discharged appearing well, given nightly dose of BP medication. Disposition Clinical Impression: Avulsion of skin, Pain of left thumb Disposition: HOME SELF-CARE Condition: Good Instructions (If sedation given, give patient instructions): Skin Avulsion (ED) Additional Instructions: Please use medication as discussed. Please follow-up with family doctor in the next 2 days, need close monitoring of the finger. Please return to emergency room if the symptoms increase or worsen or for any other concerns. Prescriptions: Cephalexin [Keflex] 500 mg PO Q6HR 7 Days #28 cap Is patient prescribed a controlled substance at d/c from ED?: No Referrals: None,Stated [Primary Care Provider] - 1-2 days [facility] [NON-STAFF] - 1-2 days Time of Disposition: 23:42
== END 2019-08-19 23:50 | disposition home or self-care (01) ==
LOC: EC 21:20
DX: S61.112A Laceration without foreign body of left thumb with damage to nail, initial encounter (principal); I10 Essential (primary) hypertension; F17.200 Nicotine dependence, unspecified, uncomplicated; Z79.899 Other long term (current) drug therapy; Z23 Encounter for immunization; W27.0XXA Contact with workbench tool, initial encounter; Y92.009 Unspecified place in unspecified non-institutional (private) residence as the place of occurrence of the external cause
CPT/HCPCS: 73140; 90715; 99283; 96372; 90471; J0690; J2001

== ENCOUNTER 2021-02-19 14:53 | Emergency (ER) | payer OTHER ==
[2021-02-19 15:29] VITALS: BP 147/101; PULSE 88; RESP 18; TEMP 99
[2021-02-19] MEDS ORDERED: diazePAM 5 MG TAB PO STA (16:26)
[2021-02-19] MEDS ORDERED: KETOROLAC 15 MG/ML 1 ML VIAL IM STA (16:26)
[2021-02-19 16:53] LABS: Appearance,Urine Clear (Clear); Bilirubin,Urine Negative (Negative); Blood,Urine Negative (Negative); Color,Urine Yellow; Glucose,Urine (UA) Negative (Negative); Ketones,Urine Negative (Negative); Leukocyte Esterase,Urine Negative (Negative); Nitrite,Urine Negative (Negative); PH, Urine 5.5 (5.0-8.0); Protein,Urine Trace (Negative); Specific Gravity,Urine 1.029 (1.001-1.035); Urobilinogen,Urine <2.0 mg/dL (<2.0)
--- NOTE | 2021-02-19 17:14 | ED ---
Back Pain HPI - General Chief Complaint: Back Pain/Injury Stated Complaint: R back pain Time Seen by Provider: 02/19/21 15:49 Source: patient Limitations: physical limitation - History of Present Illness Initial Comments: Patient is a 40-year-old male presenting to emergency Department with complaints of right-sided low back pain over the past 2-3 days. He states he's had issues with his back in the past and this is similar however feels a little bit more intense than usual. He denies any falls or trauma. He does have some radiation of the pain into his right gluteal and down the right posterior upper leg. He denies any numbness and tingling. Denies any saddle paresthesia, no bowel or bladder incontinence. He denies any fevers or chills. He denies history of kidney stones, no hematuria. He has no further complaints at this time. - Related Data Home Medications Medication Instructions Recorded Confirmed Metoprolol Tartrate [Lopressor] 200 mg PO TID 05/09/19 06/22/19 Labetalol [Trandate] 300 mg PO QID 06/22/19 06/22/19 lisinopriL [Zestril] 20 mg PO BID 06/22/19 06/22/19 Previous Rx's Medication Instructions Recorded Cephalexin [Keflex] 500 mg PO Q6HR 7 Days #28 cap 08/19/19 Cyclobenzaprine [Flexeril] 5 mg PO DAILY PRN #10 tablet 02/19/21 HYDROcodone/APAP 5-325MG [[place] 1 tab PO Q6HR PRN 3 Days #12 tab 02/19/21 5-325] predniSONE 50 mg PO DAILY #5 tab 02/19/21 Allergies Allergy/AdvReac Type Severity Reaction Status Date / Time No Known Allergies Allergy Verified 02/19/21 15:29 Review of Systems ROS Statement: Those systems with pertinent positive or pertinent negative responses have been documented in the HPI. ROS Other: All systems not noted in ROS Statement are negative. Past Medical History Past Medical History: Hypertension, Skin Disorder Additional Past Medical History / Comment(s): psoriasis History of Any Multi-Drug Resistant Organisms: None Reported Past Surgical History: Orthopedic Surgery Additional Past Surgical History / Comment(s): aortic dissection with repair, Right ankle surgery Past Anesthesia/Blood Transfusion Reactions: No Reported Reaction Past Psychological History: No Psychological Hx Reported Smoking Status: Current every day smoker Past Alcohol Use History: Occasional Past Drug Use History: None Reported - Past Family History Mother Family Medical History: CVA/TIA Father Additional Family Medical History / Comment(s): ETOH Pancreatitis General Exam - General Exam Comments Initial Comments: GENERAL: Patient is well-developed and well-nourished. Patient is nontoxic and in moderate distress. HEAD: Atraumatic, normocephalic. EYES: Pupils equal round and reactive to light, extraocular movements intact, sclera anicteric, conjunctiva are normal. Eyelids were unremarkable. NECK: Normal range of motion, supple without lymphadenopathy or JVD. LUNGS: Unlabored respirations. Breath sounds clear to auscultation bilaterally and eq ual. No wheezes rales or rhonchi. HEART: Regular rate and rhythm without murmurs, rubs or gallops. ABDOMEN: Soft, nontender, normoactive bowel sounds. No guarding, no rebound. No masses appreciated. : Deferred MUSCULOSKELETAL: Patient has some tenderness with palpation of the right lower lobar paraspinals, does have some right gluteal tenderness as well. Normal extremities with adequate strength and normal range of motion, no pitting or edema. No clubbing or cyanosis. NEUROLOGICAL: Patient is alert and oriented x 3. Motor and sensory are also intact. Normal speech, normal gait. PSYCH: Normal mood, normal affect. SKIN: Warm, Dry, normal turgor, no rashes or lesions noted. Limitations: physical limitation Course Vital Signs 02/19/21 15:25 Temperature 99 F Pulse Rate 88 Respiratory 18 Rate Blood Pressure 147/101 O2 Sat by Pulse 99 Oximetry Medical Decision Making - Medical Decision Making Patient is a 40-year-old male here with right lower back pain increasing over the past 2-3 days. No falls or trauma. He has had similar pain in the past. No history of kidney stones, did check a urinalysis which reveals no hematuria. Patient was given Toradol and Valium here today in the ER. I discussed with patient this is most likely muscle skeletal in nature, possible mild right-sided sciatica as well. I will give him a course of pain medications, steroids and muscle relaxers. He can follow up with orthopedics if symptoms persist. Return parameters were discussed with the patient he verbalizes understanding. Case discussed with Dr. [place]. - Lab Data Lab Results 02/19/21 Range/Units 16:40 Urine Color Yellow Urine Appearance Clear (Clear) Urine pH 5.5 (5.0-8.0) Ur Specific [place] 1.029 (1.001-1.035) Urine Protein Trace H (Negative) Urine Glucose (UA) Negative (Negative) Urine Ketones Negative (Negative) Urine Blood Negative (Negative) Urine Nitrite Negative (Negative) Urine Bilirubin Negative (Negative) Urine Urobilinogen <2.0 (<2.0) mg/dL Ur Leukocyte Esterase Negative (Negative) Disposition Clinical Impression: Strain of lumbar region, Right-sided low back pain with sciatica Disposition: HOME SELF-CARE Condition: Stable Instructions (If sedation given, give patient instructions): Acute Low Back Pain (ED) Additional Instructions: Please return to the Emergency Department if symptoms worsen or any other concerns. Take medications as prescribed. May use heat to the area, gentle stretching. Refrain from heavy, strenuous activities. Follow up with orthopedics if symptoms persist. Prescriptions: Cyclobenzaprine [Flexeril] 5 mg PO DAILY PRN #10 tablet PRN Reason: Muscle Spasm HYDROcodone/APAP 5-325MG [[place] 5-325] 1 tab PO Q6HR PRN 3 Days #12 tab PRN Reason: Pain predniSONE 50 mg PO DAILY #5 tab Is patient prescribed a controlled substance at d/c from ED?: Yes When asked, does pt state using other controlled substances?: No If prescribed controlled substance>3 days was MAPS reviewed?: Prescribed <3 Days If opioid is for acute pain is fill amount 7 days or less?: Yes If Rx opioid, was Start Talking consent form obtained?: Yes Referrals: None,Stated [Primary Care Provider] - 1-2 days Shaniqua Tanner, [Doctor of Osteopathic Medicine] - 1-2 days Time of Disposition: 17:14
== END 2021-02-19 18:20 | disposition home or self-care (01) ==
LOC: EC 14:53
DX: S39.012A Strain of muscle, fascia and tendon of lower back, initial encounter (principal); I10 Essential (primary) hypertension; F17.200 Nicotine dependence, unspecified, uncomplicated; X58.XXXA Exposure to other specified factors, initial encounter
CPT/HCPCS: 81003; 99283; 96372; J1885

== ENCOUNTER 2022-06-05 14:13 | Emergency (ER) | payer OTHER ==
[2022-06-05 14:19] VITALS: BP 216/104; PULSE 102; RESP 18; TEMP 98.5
--- NOTE | 2022-06-05 14:34 | ED ---
General Adult HPI <Hipolito Ham - Last Filed: 06/05/22 15:07> - General Source: patient, RN notes reviewed, old records reviewed Mode of arrival: ambulatory Limitations: no limitations <Jamal Beck - Last Filed: 06/05/22 15:11> - General Chief complaint: Extremity Injury, Upper Stated complaint: Hand injury Time Seen by Provider: 06/05/22 14:15 - History of Present Illness Initial comments: This a 41-year-old male who presents emergency Department complaining that he injured the tips of 3 of his fingers with a Skil saw. Patient denies any hand pain patient denies any wrist pain patient denies any other injury. Patient states he has up-to-date on his tetanus. (Jamal Beck) - Related Data Home Medications Medication Instructions Recorded Confirmed Metoprolol Tartrate [Lopressor] 200 mg PO TID 05/09/19 06/22/19 Labetalol [Trandate] 300 mg PO QID 06/22/19 06/22/19 lisinopriL [Zestril] 20 mg PO BID 06/22/19 06/22/19 Previous Rx's Medication Instructions Recorded Cephalexin [Keflex] 500 mg PO Q6HR 7 Days #28 cap 08/19/19 Cyclobenzaprine [Flexeril] 5 mg PO DAILY PRN #10 tablet 02/19/21 HYDROcodone/APAP 5-325MG [[place] 1 tab PO Q6HR PRN 3 Days #12 tab 02/19/21 5-325] predniSONE 50 mg PO DAILY #5 tab 02/19/21 Cephalexin [Keflex] 500 mg PO Q6HR #28 cap 06/05/22 Allergies Allergy/AdvReac Type Severity Reaction Status Date / Time No Known Allergies Allergy Verified 02/19/21 15:29 Review of Systems ROS Other: All systems not noted in ROS Statement are negative. <Hipolito Ham - Last Filed: 06/05/22 15:07> ROS Other: All systems not noted in ROS Statement are negative. <Jamal Beck - Last Filed: 06/05/22 15:11> ROS Statement: Those systems with pertinent positive or pertinent negative responses have been documented in the HPI. Past Medical History Past Medical History: Hypertension, Skin Disorder Additional Past Medical History / Comment(s): psoriasis History of Any Multi-Drug Resistant Organisms: None Reported Past Surgical History: Orthopedic Surgery Additional Past Surgical History / Comment(s): aortic dissection with repair, Right ankle surgery Past Anesthesia/Blood Transfusion Reactions: No Reported Reaction Past Psychological History: No Psychological Hx Reported Smoking Status: Current every day smoker Past Alcohol Use History: Occasional Past Drug Use History: None Reported - Past Family History Mother Family Medical History: CVA/TIA Father Additional Family Medical History / Comment(s): ETOH Pancreatitis <Jamal Beck - Last Filed: 06/05/22 15:11> General Exam Limitations: no limitations <Jamal Beck - Last Filed: 06/05/22 15:11> - General Exam Comments Initial Comments: GENERAL Patient is well-developed and well-nourished. Patient is in mild distress. EYES Patient's pupils are equal and round. Extraocular motion is intact SKIN Unremarkable NEURO The patient is alert and oriented 3 PYSCH Patient has normal interpersonal interactions. MUSCULOSKELETAL Patient has a small laceration on distal aspect of the palmar surface of fingers 3, 4 and 5 (Jamal Beck) Course Vital Signs 06/05/22 14:16 Temperature 98.5 F Pulse Rate 102 H Respiratory 18 Rate Blood Pressure 216/104 O2 Sat by Pulse 98 Oximetry Procedures - Laceration Laceration #1 Consent Obtained: verbal consent Indication: laceration Site: hand (Left hand fourth digit) Size (cm): 3 Description: irregular Depth: simple, single layer Anesthetic Used: lidocaine 1%, without epi Anesthesia Technique: local infiltration Amount (mls): 3 Pre-repair: wound explored, irrigated extensively, deep structures intact Type of Sutures: nylon Size of Sutures: 4-0 Number of Sutures: 7 Technique: simple, interrupted Patient Tolerated Procedure: well, no complications <Hipolito Ham - Last Filed: 06/05/22 15:07> Medical Decision Making <Jamal Beck - Last Filed: 06/05/22 15:11> - Medical Decision Making I interpreted the x-ray. X-ray of the hand showed no fractures of any of the phalanx (Jamal Beck) Disposition Is patient prescribed a controlled substance at d/c from ED?: No Time of Disposition: 15:09 <Hipolito Ham - Last Filed: 06/05/22 15:07> <BeckJamal - Last Filed: 06/05/22 15:11> Clinical Impression: Laceration of finger of left hand, Contact with powered saw as cause of accidental injury Disposition: HOME SELF-CARE Condition: Stable Instructions (If sedation given, give patient instructions): Finger Laceration (ED) Additional Instructions: Have sutures removed in 10 days. Please return to the Emergency Department if symptoms worsen or any other concerns. Prescriptions: Cephalexin [Keflex] 500 mg PO Q6HR #28 cap Referrals: Nonstaff,Physician [Primary Care Provider] - 1-2 days
[2022-06-05] MEDS ORDERED: LIDOCAINE 1% INJ 10MG/ML (30 ML VIAL-PF) SQ ONE (14:44)
--- NOTE | 2022-06-05 14:50 | XR ---
Left hand. HISTORY: Pain following trauma. COMPARISON: None TECHNIQUE: 3 views left hand were obtained. FINDINGS: There is no fracture, dislocation, intraosseous or intra-articular abnormality. The soft tissues are normal. IMPRESSION: No significant abnormality seen.
[2022-06-05] MEDS ORDERED: BACITRACIN OINT 1 EACH PACKET TOPICAL ONE (15:07)
== END 2022-06-05 15:23 | disposition home or self-care (01) ==
LOC: EC 14:13
DX: S61.412A Laceration without foreign body of left hand, initial encounter (principal); I10 Essential (primary) hypertension; F17.200 Nicotine dependence, unspecified, uncomplicated; Z79.891 Long term (current) use of opiate analgesic; Z79.810 Long term (current) use of selective estrogen receptor modulators (SERMs); Z79.01 Long term (current) use of anticoagulants; W31.2XXA Contact with powered woodworking and forming machines, initial encounter
CPT/HCPCS: 73130; 12002; 99283; J2001

== ENCOUNTER 2024-01-25 22:47 | Emergency (ER) | payer OTHER ==
[2024-01-26] MEDS: MORPHINE SULFATE 4 MG/ML SYRINGE IVP STA (00:28)
[2024-01-26] MEDS: KETOROLAC 15 MG/ML 1 ML VIAL IVP STA (00:29)
[2024-01-26 00:34] VITALS: TEMP 98
[2024-01-26 00:47] LABS: Basophils # (A) 0.1 k/uL (0-0.2); Basophils % (A) 1 %; Eosinophils # (A) 0.1 k/uL (0-0.7); Eosinophils % (A) 2 %; HCT 44.1 % (39.0-53.0); HGB 14.5 gm/dL (13.0-17.5); Lymphocytes # (A) 1.4 k/uL (1.0-4.8); Lymphocytes % (A) 19 %; MCH 31.6 pg (25.0-35.0); MCHC 32.9 g/dL (31.0-37.0); MCV 96.1 fL (80.0-100.0); Mean Platelet Volume 8.4; Monocytes # (A) 0.5 k/uL (0-1.0); Monocytes % (A) 8 %; Neutrophils # (A) 4.9 k/uL (1.3-7.7); Neutrophils % (A) 69 %; Platelet Count 159 k/uL (150-450); RBC 4.59 m/uL (4.30-5.90); RDW 13.2 % (11.5-15.5); WBC 7.1 k/uL (3.8-10.6)
[2024-01-26] MEDS: METOPROLOL TARTRATE 50 MG TAB PO STA (00:52)
[2024-01-26] MEDS: lisinopriL 20 MG TAB PO STA (00:52)
--- NOTE | 2024-01-26 00:56 | XR ---
EXAMINATION TYPE: XR foot complete RT DATE OF EXAM: 01/26/2024 CLINICAL HISTORY: Redness/swelling MTP TECHNIQUE: Frontal, lateral, and oblique images of the right foot are obtained. COMPARISON: None FINDINGS: There is no acute fracture/dislocation evident in the right foot. Moderate soft tissue swe lling over the first toe is seen. There is 1.2 cm round lucent lesion in the base of the first proxim al phalanx with sclerotic margins favoring a nonaggressive etiology. [id number] narrowing at th e first metatarsophalangeal joint. Prominent bony projection or enthesopathy anterior superior talus is noted. No suspicious bony destruction is seen to suggest acute osteomyelitis. IMPRESSION: As above.
[2024-01-26 01:01] LABS: ALT 28 U/L (4-49); AST 30 U/L (17-59); African American GFR (CKD) >90 (>60 ml/min/1.73 sqM); Albumin 4.1 g/dL (3.5-5.0); Alkaline Phosphatase 80 U/L (38-126); Blood Urea Nitrogen 22 mg/dL (9-20); Calcium 9.6 mg/dL (8.4-10.2); Carbon Dioxide 23 mmol/L (22-30); Chloride 103 mmol/L (98-107); Glucose 121 mg/dL (74-99); Non-African American GFR(CKD) >90 (>60 ml/min/1.73 sqM); Total Bilirubin 0.8 mg/dL (0.2-1.3); Total Protein 7.2 g/dL (6.3-8.2)
[2024-01-26 01:30] LABS: Anion Gap 15 mmol/L; Potassium 4.2 mmol/L (3.5-5.1); Sodium 141 mmol/L (137-145)
[2024-01-26] MEDS: cloNIDine HCL 0.1 MG TAB PO STA (01:53)
[2024-01-26] MEDS: methylPREDNISolone SOD SUCCI 125 MG/2 ML VIAL IVP ONE (02:03)
[2024-01-26] MEDS: hydrALAZINE HCL 20 MG/ML 1 ML VIAL IVP STA (02:43)
--- NOTE | 2024-01-26 03:00 | ED ---
General Adult HPI - General Chief complaint: Skin/Abscess/Foreign Body Stated complaint: RT foot pain Time Seen by Provider: 01/25/24 23:37 Source: patient Mode of arrival: ambulatory Limitations: no limitations - History of Present Illness Initial comments: 43-year-old male presenting with chief complaint of right foot pain. Patient has had redness swelling and increased pain near the right toe for the last 2 days. He has no history of gout. No injury. No numbness tingling or weakness. No fevers. No nausea or vomiting. No history of diabetes or neuropathy. Does have high blood pressure, states that he needs a refill for his blood pressure medication, last dose was 4 days ago. No chest pain or difficulty breathing. No headache or abdominal pain. - Related Data Home Medications Medication Instructions Recorded Confirmed Metoprolol Tartrate [Lopressor] 200 mg PO TID 05/09/19 06/22/19 Labetalol [Trandate] 300 mg PO QID 06/22/19 06/22/19 lisinopriL [Zestril] 20 mg PO BID 06/22/19 06/22/19 Previous Rx's Medication Instructions Recorded Cephalexin [Keflex] 500 mg PO Q6HR 7 Days #28 cap 08/19/19 Cyclobenzaprine [Flexeril] 5 mg PO DAILY PRN #10 tablet 02/19/21 HYDROcodone/APAP 5-325MG [[place] 1 tab PO Q6HR PRN 3 Days #12 tab 02/19/21 5-325] predniSONE 50 mg PO DAILY #5 tab 02/19/21 Cephalexin [Keflex] 500 mg PO Q6HR #28 cap 06/05/22 Indomethacin [Indocin] 50 mg PO TID PRN #15 capsule 01/26/24 Metoprolol Tartrate [Lopressor] 200 mg PO DAILY #30 tablet 01/26/24 lisinopriL 40 mg PO DAILY #30 tab 01/26/24 Allergies Allergy/AdvReac Type Severity Reaction Status Date / Time No Known Allergies Allergy Verified 01/25/24 23:07 Review of Systems ROS Statement: Those systems with pertinent positive or pertinent negative responses have been documented in the HPI. ROS Other: All systems not noted in ROS Statement are negative. Past Medical History Past Medical History: Hypertension, Skin Disorder Additional Past Medical History / Comment(s): psoriasis History of Any Multi-Drug Resistant Organisms: None Reported Past Surgical History: Orthopedic Surgery Additional Past Surgical History / Comment(s): aortic dissection with repair, Right ankle surgery Past Anesthesia/Blood Transfusion Reactions: No Reported Reaction Past Psychological History: No Psychological Hx Reported Smoking Status: Current every day smoker Past Alcohol Use History: Occasional Past Drug Use History: None Reported - Past Family History Mother Family Medical History: CVA/TIA Father Additional Family Medical History / Comment(s): ETOH Pancreatitis General Exam Limitations: no limitations General appearance: alert, in no apparent distress Head exam: Present: atraumatic, normocephalic Eye exam: Present: normal appearance, EOMI Neck exam: Present: normal inspection. Absent: meningismus Respiratory exam: Absent: respiratory distress Right Foot/Toe exam: Present: tenderness (MTP joint), swelling (MTP joint), erythema (MTP joint) Neurological exam: Present: alert, oriented X3 Psychiatric exam: Present: normal affect, normal mood Course Vital Signs 01/25/24 01/26/24 01/26/24 23:02 00:31 01:23 Temperature 99.0 F 98.0 F Pulse Rate 108 H 92 96 Respiratory 18 16 15 Rate Blood Pressure 183/113 194/122 189/129 O2 Sat by Pulse 96 95 99 Oximetry 01/26/24 01/26/24 01/26/24 01:55 02:34 03:04 Temperature Pulse Rate 81 77 67 Respiratory 15 15 15 Rate Blood Pressure 182/126 187/137 144/100 O2 Sat by Pulse 96 97 97 Oximetry 01/26/24 03:27 Temperature Pulse Rate 68 Respiratory 16 Rate Blood Pressure 142/94 O2 Sat by Pulse 95 Oximetry Medical Decision Making - Medical Decision Making Was pt. sent in by a medical professional or institution (, PA, NURSE TRANSITIONAL, urgent care, hospital, or skilled nursing...) When possible be specific @ -No Did you speak to anyone other than the patient for history (EMS, parent, family, police, friend...)? What history was obtained from this source @ -No Did you review nursing and triage notes (agree or disagree)? Why? @ -I reviewed and agree with nursing and triage notes Were old charts reviewed (outside hosp., previous admission, EMS record, old EKG, old radiological studies, urgent care reports/EKG's, skilled nursing records)? Report findings @ -No old charts were reviewed Differential Diagnosis (chest pain, altered mental status, abdominal pain women, abdominal pain men, vaginal bleeding, weakness, fever, dyspnea, syncope, headache, dizziness, GI bleed, back pain, seizure, CVA, palpatations, mental health, musculoskeletal)? @ -Differential Musculoskeletal Muscular strain, contusion, ligament sprain, fracture, arthritis, septic arthritis, bursitis, cellulitis, muscle spasm, nerve compression, DVT, arterial occlusion, herpes zoster, electrolyte abnormality, tumor.... This is not meant to be in all inclusive list EKG interpreted by me (3pts min.). @ -As above X-rays interpreted by me (1pt min.). @ -X-ray shows no acute fracture or dislocation. Moderate soft tissue swelling over the first toe. There is 1.2 cm round lucent lesion in the base of the first proximal phalanx with sclerotic margins favoring a nonaggressive etiology. Mild to moderate narrowing at the first metatarsophalangeal joint. Prominent bony projection or enthesopathy anterior superior talus is noted. No suspicious bony destruction to suggest acute osteomyelitis CT interpreted by me (1pt min.). @ -None done U/S interpreted by me (1pt. min.). @ -None done What testing was considered but not performed or refused? (CT, X-rays, U/S, labs)? Why? @ -None What meds were considered but not given or refused? Why? @ -None Did you discuss the management of the patient with other professionals (professionals i.e. , PA, NURSE TRANSITIONAL, lab, RT, psych nurse, social media coordinator, mud mill tender, teacher, customer service officer, case packer)? Give summary @ -No Was smoking cessation discussed for >3mins.? @ -No Was critical care preformed (if so, how long)? @ -No Were there social determinants of health that impacted care today? How? (Homelessness, low income, unemployed, alcoholism, drug addiction, transportation, low edu. Level, literacy, decrease access to med. care, prison, rehab)? @ -No Was there de-escalation of care discussed even if they declined (Discuss DNR or withdrawal of care, Hospice)? DNR status @ -No What co-morbidities impacted this encounter? (DM, HTN, Smoking, COPD, CAD, Cancer, CVA, ARF, Chemo, Hep., AIDS, mental health diagnosis, sleep apnea, morbid obesity)? @ -None Was patient admitted / discharged? Hospital course, mention meds given and route, prescriptions, significant lab abnormalities, going to OR and other pertinent info. @ -43-year-old male presenting chief complaint of right foot pain. He has redness swelling and tenderness around the MTP joint. Lab work is obtained which shows no leukocytosis. Uric acid is WNL. X-ray shows no fracture or dislocation or bony destruction. Patient has no wounds or other findings to suggest infectious process. Presentation seems consistent with gout. He reports improvement after Toradol morphine and Solu-Medrol. He is educated on today's findings and supportive management. Instructed to follow-up with his PCP regarding x-ray findings. Provided with indomethacin for home. Discharged. Follow-up with PCP. Report back to ER with any new or worsening symptoms. Di scussed return parameters and answered all questions. Patient conveyed verbal understanding and agreed to the plan. I discussed this case in detail with my attending Dr. Undiagnosed new problem with uncertain prognosis? @ -No Drug Therapy requiring intensive monitoring for toxicity (Heparin, Nitro, Insulin, Cardizem)? @ -No Were any procedures done? @ -No Diagnosis/symptom? @ -Gout Acute, or Chronic, or Acute on Chronic? @ -Acute Uncomplicated (without systemic symptoms) or Complicated (systemic symptoms)? @ -Uncomplicated Side effects of treatment? @ -No Exacerbation, Progression, or Severe Exacerbation? @ -No Poses a threat to life or bodily function? How? (Chest pain, [place], [place], pneumonia, PE, COPD, DKA, ARF, appy, cholecystitis, CVA, Diverticulitis, Homicidal, Suicidal, threat to staff... and all critical care pts) @ -No - Lab Data Result diagrams: 01/26/24 00:22 01/26/24 00:22 Lab Results 01/26/24 01/26/24 01/26/24 Range/Units 00:22 00:22 00:22 WBC 7.1 (3.8-10.6) k/uL RBC 4.59 (4.30-5.90) m/uL Hgb 14.5 (13.0-17.5) gm/dL Hct 44.1 (39.0-53.0) % MCV 96.1 (80.0-100.0) fL MCH 31.6 (25.0-35.0) pg MCHC 32.9 (31.0-37.0) g/dL RDW 13.2 (11.5-15.5) % Plt Count 159 (150-450) k/uL MPV 8.4 Neutrophils % 69 % Lymphocytes % 19 % Monocytes % 8 % Eosinophils % 2 % Basophils % 1 % Neutrophils # 4.9 (1.3-7.7) k/uL Lymphocytes # 1.4 (1.0-4.8) k/uL Monocytes # 0.5 (0-1.0) k/uL Eosinophils # 0.1 (0-0.7) k/uL Basophils # 0.1 (0-0.2) k/uL Sodium 141 (137-145) mmol/L Potassium 4.2 (3.5-5.1) mmol/L Chloride 103 (98-107) mmol/L Carbon Dioxide 23 (22-30) mmol/L Anion Gap 15 mmol/L BUN 22 H (9-20) mg/dL Creatinine 0.96 (0.66-1.25) mg/dL Est GFR (CKD-EPI)AfAm >90 (>60 ml/min/1.73 sqM) Est GFR (CKD-EPI)NonAf >90 (>60 ml/min/1.73 sqM) Glucose 121 H (74-99) mg/dL Plasma Lactic Acid [place] 1.2 (0.7-2.0) mmol/L Uric Acid 8.0 (3.5-8.5) mg/dL Calcium 9.6 (8.4-10.2) mg/dL Total Bilirubin 0.8 (0.2-1.3) mg/dL AST 30 (17-59) U/L ALT 28 (4-49) U/L Alkaline Phosphatase 80 (38-126) U/L Total Protein 7.2 (6.3-8.2) g/dL Albumin 4.1 (3.5-5.0) g/dL Disposition Clinical Impression: Gout, Hypertension Disposition: HOME SELF-CARE Condition: Good Instructions (If sedation given, give patient instructions): Low Purine Diet (ED), Gout (ED), Hypertension (ED) Additional Instructions: Follow-up with your PCP. Report back to ER with any new or worsening symptoms. Prescriptions: Indomethacin [Indocin] 50 mg PO TID PRN #15 capsule PRN Reason: Pain lisinopriL 40 mg PO DAILY #30 tab Metoprolol Tartrate [Lopressor] 200 mg PO DAILY #30 tablet Is patient prescribed a controlled substance at d/c from ED?: No Referrals: Kiki Foster DO [Primary Care Provider] - 1-2 days Time of Disposition: 03:25
[2024-01-26 03:29] VITALS: BP 142/94; PULSE 68; RESP 16
== END 2024-01-26 03:28 | disposition home or self-care (01) ==
LOC: EC 22:47
DX: M10.9 Gout, unspecified (principal); F17.200 Nicotine dependence, unspecified, uncomplicated
CPT/HCPCS: 36415; 80053; 83605; 84550; 85025; 73630; 99284; 96374; 96375 ×3; J2270; J0360; J1885; J2919